=== PATIENT | male | born 1960 | race Caucasian/White ===

== ENCOUNTER 2017-07-10 08:39 | Emergency (ER) | payer OTHER, MEDICAID ==
[2017-07-10] MEDS: DEXAMETHASONE 10 MG/ML 1 ML INJ IM (09:31)
[2017-07-10] MEDS: IPRATROPIUM (NEB) 0.5 MG/2.5 ML AMP HHN (09:42)
[2017-07-10] MEDS: ALBUTEROL 0.083% (NEB) 2.5 MG/3 ML AMP HHN (09:42)
== END 2017-07-10 10:47 | disposition home or self-care (01) ==
LOC: FTE 08:39
DX: J20.9 Acute bronchitis, unspecified (principal); J45.901 Unspecified asthma with (acute) exacerbation
CPT/HCPCS: 71045; 94644; 96372; 99284-25